=== PATIENT | female | born 2000 ===

== ENCOUNTER 2018-06-04 15:46 | Emergency (ER) | payer MEDICAID ==
[2018-06-04 16:30] VITALS: RESP 18; O2SAT 100
--- NOTE | 2018-06-04 16:44 | C.PDOC ---
History Of Present Illness Patient is a 18 year old female who presents to the ED for evaluation of occasional SI ideation and fleeting sexual thoughts. Patient has a past medical history of a suicide attempt at the age of 10, but has not had counseling since then. She reports that she is currently visiting home for the holidays from school. She has no present SI/HI ideation, hallucinations, CP, SOB, trauma, or any other medical complaints at the moment. Time Seen by Provider: 06/04/18 16:43 Chief Complaint (Nursing): Psychiatric Evaluation History Per: Patient History/Exam Limitations: no limitations Onset/Duration Of Symptoms: Days Current Symptoms Are (Timing): Gone Suicide/Self Injury Attempted (Context): None Modifying Factor(s): None Associated Symptoms: Depression, Suicidal Thoughts. denies: Suicidal Plan Involuntary Hold By: None Recent travel outside of the [place]: No Additional History Per: Patient Past Medical History Reviewed: Historical Data, Nursing Documentation, Vital Signs Vital Signs: Last Vital Signs Temp 98.8 F 06/04/18 16:26 Pulse 103 H 06/04/18 16:26 Resp 18 06/04/18 16:26 BP 114/76 06/04/18 16:26 Pulse Ox 100 06/04/18 16:26 - Medical History PMH: No Chronic Diseases Surgical History: No Surg Hx Family History: States: Unknown Family Hx - Social History Hx Alcohol Use: No Hx Substance Use: No - Immunization History Hx Tetanus Toxoid Vaccination: No Hx Influenza Vaccination: No Hx Pneumococcal Vaccination: No Review Of Systems Constitutional: Negative for: Fever, Chills Cardiovascular: Negative for: Chest Pain Respiratory: Negative for: Shortness of Breath Gastrointestinal: Negative for: Abdominal Pain Psych: Positive for: Depression, Suicidal ideation. Negative for: Other (hallucinations, HI ) Physical Exam - Physical Exam Appears: Non-toxic, No Acute Distress, Other (female ) Skin: Normal Color, Warm, Dry Head: Atraumatic, Normacephalic Eye(s): bilateral: Normal Inspection, PERRL, EOMI Oral Mucosa: Moist Neck: Supple Chest: Symmetrical Cardiovascular: Rhythm Regular Respiratory: Normal Breath Sounds, No Rales, No Rhonchi, No Wheezing Gastrointestinal/Abdominal: Soft Extremity: Normal ROM Neurological/Psych: Oriented x3, Normal Speech, Normal Cognition, Other (no present SI ideation ) Gait: Steady ED Course And Treatment O2 Sat by Pulse Oximetry: 100 (on RA) Pulse Ox Interpretation: Normal Medical Decision Making Medical Decision Making: Plan * Crisis evaluation d/w Crisis, concur with eval Anxiety, no SI/HI now opt f/u with Dr. Castellanos appropriate Disposition Doctor Will See Patient In The: Office Counseled Patient/Family Regarding: Studies Performed, Diagnosis - Disposition Disposition: HOME/ ROUTINE Disposition Time: 17:30 Condition: GOOD Forms: [facility] ([facility]) - Clinical Impression Clinical Impression: Anxiety - Scribe Statement The provider has reviewed the documentation as recorded by the Scribe Provider Attestation: Harmony Wilkins All medical record entries made by the Scribe were at my direction and personally dictated by me. I have reviewed the chart and agree that the record accurately reflects my personal performance of the history, physical exam, medical decision making, and the department course for this patient. I have also personally directed, reviewed, and agree with the discharge instructions and disposition.
[2018-06-04 17:52] VITALS: BP 107/72; PULSE 86; TEMP 98.6
== END 2018-06-04 17:53 | disposition home or self-care (01) ==
LOC: C.ER 15:46
DX: F41.9 Anxiety disorder, unspecified (principal)